=== PATIENT | male | born 1955 | race American Indian/Alaskan Native ===

== ENCOUNTER → 2018-04-02 | Outpatient (CLI) | payer SELFPAY ==
[2018-04-02 11:39] LABS: HEMOGLOBIN 9.4 g/dL (13.9-16.3); MEAN CELL HGB 29.3 pg (26-34); MEAN CELL HGB CONCENTRATION 32.1 g/dL (33-37); MEAN CORP VOLUME 91.3 fL (78-100); MEAN PLATELET VOLUME 10.1 fL (7.8-11.0); RED CELL DISTRIBUTION WIDTH 14.9 % (11.5-14.5)
[2018-04-02 11:50] LABS: CARBON DIOXIDE 27.6 mmol/L (20.0-32)
[2018-04-02 11:51] LABS: CALCIUM 8.3 mg/dL (8.4-10.5)
== END | disposition home or self-care (01) ==
LOC: NPLAB 11:12
PROVIDERS: ATTEND General Practice
DX: R78.81 Bacteremia (principal)
CPT/HCPCS: 36415; 80048; 85027